=== PATIENT | male | born 1940 | race Caucasian/White ===

== ENCOUNTER → 2017-09-12 | Outpatient (CLI) | payer MEDICARE ==
[~2017-09-12] MED LIST: ASA81 MG; COLON HEALTH; GUAFENESIN; IPRATROPIUM BROMIDE; PROVENTIL17 GM; REGADENOSON 0.4 MG/5 ML SYR IV ONE; SPIRIVA HANDIH18 MCG; SUDOGEST30 M1; Z.0.ADVAIR 250-501 E; Z.0.GABAPENTIN100 MG; Z.0.NEXIUM40 M1; Z.0.NORCO 5-325 TA1; Z.0.OMEPRAZOLE20 MG; Z.0.SPIRIVA18 MCG IH; Z.0.TAMSULOSIN HCL0. PO
--- NOTE | 2017-09-15 08:53 | Cardiology Report ---
DATE OF STUDY: September 12, 2017 LEXISCAN NUCLEAR STRESS TEST INDICATIONS: Chest pain. DESCRIPTION OF PROCEDURE: After informed consent, patient was brought to the stress lab. He was given 0.4 mg of Lexiscan over 10 seconds. Patient was then given 10.8 mCi of technetium-99 Myoview, and myocardial perfusion SPECT images obtained in horizontal long and short axis, vertical and long axis. Subsequently, patient was given 0.4 mg Lexiscan over 10 seconds. Patient was given 32 mCi of technetium-99 Myoview, and myocardial perfusion SPECT images were obtained in horizontal long axis, short axis and vertical and long axis. Gating images were also obtained. Patient tolerated the procedure without any complications. REPORT: Baseline EKG shows sinus bradycardia at 56 beats per minute. Normal axis. Normal intervals. Repolarization ST-T changes. PARAMETERS 1. Resting heart rate is 81 beats per minute. 2. Maximum heart rate is 81 beats per minute. 3. Resting blood pressure 127/69 mmHg. 4. Maximum blood pressure 127/69 mmHg. REASON FOR TERMINATION: End point obtained. INTERPRETATION 1. Negative chest pain. 2. Negative for arrhythmias. 3. Blood pressure response consistent with Lexiscan. 4. No significant ST-T changes seen during Lexiscan infusion compared to baseline. 5. Analysis of SPECT images reveals uniform radioisotope uptake in all segments of myocardium without any significant perfusion defects. CONCLUSIONS 1. No evidence of significant ischemia or infarction on this study. 2. No wall motion abnormality. 3. Overall ejection fraction is 55%. Job#: [id number]
== END ==
LOC: NM 08:30
DX: R07.2 Precordial pain (principal)
CPT/HCPCS: 78452; 93017; A9502

== ENCOUNTER → 2025-07-11 | Day surgery (SDC) | payer MEDICARE ==
[2025-07-08 11:27] LABS: BASOPHILS % 0.2 % (0.0-1.0); EOSINOPHILS % 1.8 % (0.0-6.0); LYMPHOCYTES % 17.1 % (18.0-39.1); MONOCYTES % 10.7 % (4.4-11.3); NEUTROPHILS % 70.0 % (38.7-80.0); RED CELL DISTRIBUTION WIDTH 15.5 % (11.7-14.4)
[~2025-07-11] MED LIST changes: +COMBIVENT RESPIM4 GM IH; +DOCUSATE SODIU100 MG PO; +ELIQUIS5 MG PO; +GLUCAGON FOR INJ 1 MG VIAL ONE; +HYDROCODON-ACE1 EAC9; +HYOSCYAMINE SULFATE 0.5 MG/ML INJ ONE; +LACTATED RINGER'S 1,000 ML ONE; +LIDOCAINE HCL 2% LOCAL INJ 5 ML SDV VIAL INJ ONE; +LIPITOR20 MG PO; +ONDANSETRON HCL4 MG; +PROPOFOL IV EMULSION 50 ML IV ONE; +PROTONIX40 MG PO; -REGADENOSON 0.4 MG/5 ML SYR IV ONE; +SYMBICORT 16010.2 GM INH
[2025-07-11 11:07] VITALS: TEMP 97
[2025-07-11 11:56] LABS: CDIFF AG QUIK CHEK NEGATIVE (NEGATIVE); CDIFF TOX QUIK CHEK NEGATIVE (NEGATIVE)
[2025-07-11 12:00] VITALS: BP 130/79; PULSE 66; RESP 16; O2SAT 96
== END | disposition home or self-care (01) ==
LOC: OR 07:59
PROVIDERS: ATTEND Internal Medicine Gastroenterology
DX: K31.A11 Gastric intestinal metaplasia without dysplasia, involving the antrum (principal); K29.70 Gastritis, unspecified, without bleeding; K44.9 Diaphragmatic hernia without obstruction or gangrene; D12.2 Benign neoplasm of ascending colon; D12.3 Benign neoplasm of transverse colon; D12.5 Benign neoplasm of sigmoid colon; K57.30 Diverticulosis of large intestine without perforation or abscess without bleeding; K64.8 Other hemorrhoids; K58.9 Irritable bowel syndrome, unspecified; I25.10 Atherosclerotic heart disease of native coronary artery without angina pectoris; J44.9 Chronic obstructive pulmonary disease, unspecified; I10 Essential (primary) hypertension; E78.00 Pure hypercholesterolemia, unspecified; E78.5 Hyperlipidemia, unspecified; D64.89 Other specified anemias; G62.9 Polyneuropathy, unspecified; J30.2 Other seasonal allergic rhinitis; N40.0 Benign prostatic hyperplasia without lower urinary tract symptoms; Z95.1 Presence of aortocoronary bypass graft; Z87.891 Personal history of nicotine dependence; Z91.048 Other nonmedicinal substance allergy status; Z79.01 Long term (current) use of anticoagulants; Z79.51 Long term (current) use of inhaled steroids; Z79.84 Long term (current) use of oral hypoglycemic drugs; Z79.899 Other long term (current) drug therapy
CPT/HCPCS: 36415; 43239; 45378; 45380; 45385; 83630; 83993; 85025; 87045; 87177; 87324; 87328; 87449; J1610; J1980; J2003; J2470